=== PATIENT | female | born 1990 | race Caucasian/White ===

== ENCOUNTER 2016-07-16 04:51 | Emergency (ER) | payer BC ==
[~2016-07-16] VITALS: Ht 165.1 cm; Wt 88.6 kg
[~2016-07-16 04:51] MED LIST: BCP TD; DEPO-PROVER400 MG/ML IM; MOTRIN 600600 MG/TAB PO; NAPROSYN500 MG PO; PRENATAL1 TA7 PO; ULTRAM 50MG TAB50 MG
[2016-07-16 04:56] VITALS: BP 137/74; TEMP 97.8
[2016-07-16] MEDS ORDERED: AMOXICILLIN875 MG PO (05:17)
[2016-07-16 05:27] VITALS: PULSE 90
== END 2016-07-16 05:27 | disposition home or self-care (01) ==
LOC: COL.ER 04:51
DX: H66.92 Otitis media, unspecified, left ear (principal)

== ENCOUNTER 2016-10-15 18:08 | Emergency (ER) | payer BC ==
[~2016-10-15] VITALS: Ht 165.1 cm; Wt 88.6 kg
[~2016-10-15 18:08] MED LIST changes: +AMOXICILLIN875 MG PO
[2016-10-15 18:10] VITALS: BP 131/68; PULSE 85; TEMP 98
[2016-10-15] MEDS ORDERED: ZOLOFT 100MG100 MG PO (18:13)
== END 2016-10-15 18:58 | disposition home or self-care (01) ==
LOC: COL.ER 18:08
DX: S00.33XA Contusion of nose, initial encounter (principal); W50.0XXA Accidental hit or strike by another person, initial encounter

== ENCOUNTER 2018-01-22 15:50 | Emergency (ER) | payer BC ==
[~2018-01-22] VITALS: Ht 165.1 cm; Wt 95.5 kg
[~2018-01-22 15:50] MED LIST changes: +ZOLOFT 100MG100 MG PO
[2018-01-22 15:53] VITALS: BP 132/66; PULSE 78; TEMP 99.2
[2018-01-22] MEDS ORDERED: LEXAPRO20 MG PO (16:16)
[2018-01-22] MEDS ORDERED: SINGULAIR 110 MG/TAB PO (16:17)
[2018-01-22] MEDS ORDERED: ALLEGRA 60MG TA60 MG PO (16:17)
[2018-01-22] MEDS ORDERED: PROAIR HFA0.09 MG/AC IH (16:17)
[2018-01-22] MEDS ORDERED: ATIVAN 1MG T1 MG/TAB PO (16:17)
== END 2018-01-22 16:30 | disposition home or self-care (01) ==
LOC: COL.ER 15:50
DX: S90.32XA Contusion of left foot, initial encounter (principal); W20.8XXA Other cause of strike by thrown, projected or falling object, initial encounter; Y92.89 Other specified places as the place of occurrence of the external cause

== ENCOUNTER 2018-04-04 13:49 | Outpatient (RCR) | payer OTHER ==
[~2018-04-04 13:49] MED LIST changes: +ALLEGRA 60MG TA60 MG PO; +ATIVAN 1MG T1 MG/TAB PO; +LEXAPRO20 MG PO; +PROAIR HFA0.09 MG/AC IH; +SINGULAIR 110 MG/TAB PO
== END 2018-06-15 | disposition home or self-care (01) ==
LOC: WSOH
DX: S86.211A Strain of muscle(s) and tendon(s) of anterior muscle group at lower leg level, right leg, initial encounter (principal); W01.0XXA Fall on same level from slipping, tripping and stumbling without subsequent striking against object, initial encounter; Y93.G1 Activity, food preparation and clean up; Y92.214 College as the place of occurrence of the external cause; Y99.0 Civilian activity done for income or pay; Z79.899 Other long term (current) drug therapy

== ENCOUNTER → 2019-04-27 | Outpatient (CLI) | payer OTHER | LOC: COL.RAD 13:59 | DX: R60.0 Localized edema (principal) ==

== ENCOUNTER 2019-05-16 14:37 | Outpatient (RCR) | payer OTHER | END 2019-06-12 08:01 | disposition home or self-care (01) | LOC: WSOT 14:37 | DX: M79.644 Pain in right finger(s) (principal); Z96.651 Presence of right artificial knee joint ==

== ENCOUNTER 2020-04-21 10:37 | Inpatient (IN) | payer BC ==
[2020-04-21] VITALS (34 sets, daily range): BP systolic 102–136; BP diastolic 54–79; PULSE 75–112; TEMP 97.4–98.5
[~2020-04-21] VITALS: Ht 165.1 cm; Wt 102.3 kg
--- NOTE | 2020-04-21 10:55 | NUR ---
Patient ambulatory onto unit with at side for labor check. Patient reports contractions since 0745. Patient reports good movement, denies vaginal bleeding and leaking of fluid. EFMs on, VS taken. SVE -/-2. Will notify for further orders.
[2020-04-21] MEDS ORDERED: IRON 27 MG PO (11:03)
[2020-04-21] MEDS ORDERED: PRENATAL VITAMI1 TA3 PO (11:03)
[2020-04-21] MEDS ORDERED: DUO-KAPS1 CAP PO (11:03)
--- NOTE | 2020-04-21 12:05 | NUR ---
Report to Jose Martin WALLACE to assume care of patient at this time.
--- NOTE | 2020-04-21 12:05 | NUR ---
MERCEDES per Gurdeep Alanis RN /1. Patient off EFM per patient request for intermittent monitoring. See physician notification. Consents explained and signed. Patient updated on plan of care. 1235- Patient back to bed and sititing upright in bed per patient request.
[2020-04-21 12:59] LABS: BASO # 0.1 (0.0-0.2); BASO % 0.3 % (0.0-2.0); EOS # 0.1 (0.0-0.7); EOS % 0.4 % (0-4.0); GRAN # 15.8 (1.4-6.5); GRAN % 87.9 % (42.2-75.2); HEMATOCRIT 37.3 % (37.0-47.0); HEMOGLOBIN 12.7 g/dl (12.5-16.0); LYMPH # 1.2 (1.2-3.4); LYMPH % 6.6 % (20.0-51.0); MEAN CELL VOLUME 92 fl (80.0-100.0); MEAN CORPUSCULAR HEMOGLOBIN 31 pg (27.0-31.0); MEAN CORPUSCULAR HGB CONC 34 g/dl (33.0-37.0); MEAN PLATELET VOLUME 10.5 fl (7.4-10.4); MONO # 0.8 (0.1-0.6); MONO % 4.2 % (1.7-9.3); PLATELET COUNT 230 K/mm3 (130-400); RED BLOOD COUNT 4.04 M/mm3 (4.10-5.30); REDCELL DISTRIBUTION WIDTH-CV 13.8 % (11.5-14.5)
--- NOTE | 2020-04-21 14:45 | NUR ---
1445- Patient up to bathroom. 1450- Patient reports SROM for moderate amount of clear fluid while in bathroom. Assisted to back to bed, pericare given. SVE unchanged. Patient requesting epidural. Marco Ngo CRNA notified, LR bolus infusing. See physician notification. 1512- Marco Ngo CRNA at bedside for epidural. Patient assisted to sit on edge of bed, difficulty tracing FHR continuously due to maternal movement and position. RN remains at bedside attempting to adjust EFM. 1526- Single shot via epidural per Marco Ngo CRNA. Patient tolerates well. No adverse reactions noted, see anesthesia record. Patient repositioned WL. 1539- Test dose via epidural per Marco Ngo CRNA. patietn tolerates well, no adverse reactions noted. See anesthesia record. Patient updated on plan of care, reports comfort with epidural.
--- NOTE | 2020-04-21 17:10 | NUR ---
1710- Patient repositioned RL. Dr. Begum updated on patient assessment and FHR strip and interventions at 1713. 1715- Patient repositioned LL 1720- Pitocin discontinued, patient LL with RL in [facility].
--- NOTE | 2020-04-21 18:30 | NUR ---
Report received, care assumed. Patient c/o feeling pain and pressure with contractions. SVE - complete/+1. Patient positioned to high fowlers and encouraged to push epidural VALVER button for pain control. Dr. Begum on unit and updated on SVE.
--- NOTE | 2020-04-21 19:25 | NUR ---
1905 - Dr. Begum to room, patient prepped for delivery and begins to push with contractions. 1924 - Spontaneous vaginal delivery of viable male infant by Dr. Begum. Cord clamped and cut and infant to the care of the nursery RN. 1929 - Spontaneous delivery of placenta by Dr. Begum. Pitocin infusing at 333ml/hr per orders and protocol. Fundus firm, lochia WNL. Repair of 2nd degree laceration by Dr. Begum.
[2020-04-22 03:30] VITALS: BP 126/65; PULSE 82; TEMP 97.9
[2020-04-22 07:05] LABS: HEMOGLOBIN 11.6 g/dl (12.5-16.0)
[2020-04-22 07:11] LABS: HEMATOCRIT 33.9 % (37.0-47.0)
[2020-04-22] MEDS ORDERED: IBU600 MG PO (08:58)
--- NOTE | 2020-04-22 10:02 | NUR ---
Initial visit; Parents thanked Campus Coordinator for offering congratulations and God's blessings for the of their son. Campus Coordinator thanked family for choosing [facility].
[2020-04-22 15:41] VITALS: BP 1114/62; PULSE 76; TEMP 98.3
[2020-04-22 20:00] VITALS: BP 110/68; PULSE 78; TEMP 98.2
== END 2020-04-22 21:25 | disposition home or self-care (01) | DRG 807 ==
LOC: LDRO 10:37 → LDR 12:08 → OB 12:08
PROVIDERS: Obstetrics & Gynecology; ADMIT Obstetrics & Gynecology
PROC: 10E0XZZ Delivery of Products of Conception, External Approach (ICD-10-PCS; principal; 2020-04-21)
PROC: 0KQM0ZZ Repair Perineum Muscle, Open Approach (ICD-10-PCS; 2020-04-21)
DX: O99.214 Obesity complicating childbirth (principal); Z37.0 Single live birth; E66.9 Obesity, unspecified; O99.344 Other mental disorders complicating childbirth; F32.9 Major depressive disorder, single episode, unspecified; O70.1 Second degree perineal laceration during delivery; Z3A.39 39 weeks gestation of pregnancy; M19.90 Unspecified osteoarthritis, unspecified site
CPT/HCPCS: J2400; J2590; J2795; J7120

== ENCOUNTER → 2020-11-28 | Outpatient (CLI) | payer BC ==
[~2020-11-28] VITALS: Ht 165.1 cm; Wt 93.6 kg
[~2020-11-28] MED LIST changes: +DUO-KAPS1 CAP PO; +EFFEXOR 75M75 MG/TAB PO; +IBU600 MG PO; +IRON 27 MG PO; +NORCO 325 MG-51 TAB PO; +PRENATAL VITAMI1 TA3 PO
[2020-11-28 12:59] VITALS: BP 119/79; PULSE 81
[2020-11-28 14:45] VITALS: BP 133/86; PULSE 76
== END ==
LOC: COL.RAD 12:40
DX: M46.1 Sacroiliitis, not elsewhere classified (principal)
CPT/HCPCS: J3301

== ENCOUNTER → 2020-12-19 | Outpatient (CLI) | payer BC ==
[~2020-12-19] VITALS: Ht 165.1 cm; Wt 95.8 kg
[2020-12-19 06:58] VITALS: BP 126/77; PULSE 73
[2020-12-19 07:53] VITALS: BP 127/76; PULSE 73
--- NOTE | 2020-12-19 07:55 | NUR ---
RIGHT FOOT IS FINE NOW, NO NUMBNESS. SNACK GIVEN
== END ==
LOC: COL.RAD 06:30
DX: M54.41 Lumbago with sciatica, right side (principal)
CPT/HCPCS: J3301

== ENCOUNTER → 2021-06-20 | Outpatient (CLI) | payer BC | LOC: MHCPAIN 10:48 | DX: M51.16 Intervertebral disc disorders with radiculopathy, lumbar region (principal); M99.05 Segmental and somatic dysfunction of pelvic region ==

== ENCOUNTER → 2021-07-14 | Outpatient (CLI) | payer BC | LOC: MHCPAIN 09:48 | DX: M53.3 Sacrococcygeal disorders, not elsewhere classified (principal) | CPT/HCPCS: J1100; Q9967 ==

== ENCOUNTER → 2021-08-26 | Outpatient (CLI) | payer BC | LOC: MHCPAIN 11:32 | DX: M54.16 Radiculopathy, lumbar region (principal); M41.26 Other idiopathic scoliosis, lumbar region; M79.18 Myalgia, other site | CPT/HCPCS: G0463 ==

== ENCOUNTER → 2021-09-04 | Outpatient (CLI) | payer BC | LOC: MHCPAIN 08:43 | DX: M47.816 Spondylosis without myelopathy or radiculopathy, lumbar region (principal); M53.3 Sacrococcygeal disorders, not elsewhere classified; M54.16 Radiculopathy, lumbar region | CPT/HCPCS: J1100; Q9967 ==

== ENCOUNTER → 2021-11-11 | Outpatient (CLI) | payer BC | LOC: MHCPAIN 10:46 | DX: M54.16 Radiculopathy, lumbar region (principal); M79.2 Neuralgia and neuritis, unspecified; M53.3 Sacrococcygeal disorders, not elsewhere classified | CPT/HCPCS: G0463 ==

== ENCOUNTER → 2022-07-03 | Outpatient (CLI) | payer OTHER | LOC: MC.RAD 08:45 | DX: Z00.00 Encounter for general adult medical examination without abnormal findings (principal); R59.0 Localized enlarged lymph nodes ==

== ENCOUNTER 2022-08-02 06:45 | Emergency (ER) | payer OTHER ==
[~2022-08-02] VITALS: Ht 162.6 cm; Wt 109.1 kg
[2022-08-02 07:41] LABS: STREP SCREEN POSITIVE
[2022-08-02] MEDS ORDERED: CEPACOL SORE TH1 LO8 MM (07:52)
[2022-08-02 08:32] VITALS: BP 131/92; PULSE 97; TEMP 97.9
== END 2022-08-02 08:34 | disposition home or self-care (01) ==
LOC: COL.ER 06:45
PROVIDERS: Emergency Medicine
DX: J02.0 Streptococcal pharyngitis (principal); Z28.310 Unvaccinated for COVID-19
CPT/HCPCS: J0561; J1100

== ENCOUNTER → 2022-08-26 | Outpatient (CLI) | payer OTHER ==
[~2022-08-26] MED LIST changes: +CEPACOL SORE TH1 LO8 MM
== END ==
LOC: MHCPAIN 14:20
DX: M54.50 Low back pain, unspecified (principal); M51.36 Other intervertebral disc degeneration, lumbar region; M54.31 Sciatica, right side; M79.18 Myalgia, other site
CPT/HCPCS: G0463

== ENCOUNTER → 2022-09-23 | Outpatient (CLI) | payer OTHER | LOC: MHCPAIN 11:16 | DX: M79.18 Myalgia, other site (principal); M54.31 Sciatica, right side | CPT/HCPCS: J3301 ==

== ENCOUNTER 2023-06-04 09:45 | Outpatient (RCR) | payer OTHER | END 2023-06-06 | disposition home or self-care (01) | LOC: MKS.ESL.PT | DX: M51.36 Other intervertebral disc degeneration, lumbar region (principal) ==

== ENCOUNTER → 2023-06-04 | Outpatient (CLI) | payer OTHER | LOC: COL.RAD 08:07 | DX: M51.16 Intervertebral disc disorders with radiculopathy, lumbar region (principal); M47.26 Other spondylosis with radiculopathy, lumbar region; M48.061 Spinal stenosis, lumbar region without neurogenic claudication; N92.0 Excessive and frequent menstruation with regular cycle ==

== ENCOUNTER → 2023-06-22 | Outpatient (CLI) | payer OTHER | LOC: COL.LAB 13:10 | DX: M47.816 Spondylosis without myelopathy or radiculopathy, lumbar region (principal); M79.2 Neuralgia and neuritis, unspecified ==

== ENCOUNTER 2023-07-02 09:45 | Outpatient (RCR) | payer OTHER | END 2023-07-07 | disposition home or self-care (01) | LOC: MKS.ESL.PT | DX: M51.16 Intervertebral disc disorders with radiculopathy, lumbar region (principal) ==

== ENCOUNTER 2023-07-16 09:45 | Outpatient (RCR) | payer OTHER | END 2023-07-26 08:33 | disposition home or self-care (01) | LOC: MKS.ESL.PT 09:45 | DX: M51.16 Intervertebral disc disorders with radiculopathy, lumbar region (principal) ==

== ENCOUNTER → 2023-08-30 | Outpatient (CLI) | payer OTHER | LOC: MHCPAIN 10:17 | DX: M54.50 Low back pain, unspecified (principal); M47.816 Spondylosis without myelopathy or radiculopathy, lumbar region; M79.18 Myalgia, other site | CPT/HCPCS: G0463 ==

== ENCOUNTER → 2023-10-04 | Outpatient (CLI) | payer OTHER | LOC: MHCPAIN 11:02 | DX: M47.816 Spondylosis without myelopathy or radiculopathy, lumbar region (principal); M54.50 Low back pain, unspecified | CPT/HCPCS: J0665 ==

== ENCOUNTER 2024-03-31 16:20 | Emergency (ER) | payer OTHER ==
[~2024-03-31] VITALS: Ht 162.6 cm; Wt 105.0 kg
[2024-03-31 16:23] VITALS: TEMP 97.8
[2024-03-31 19:04] LABS: BASO # 0.1 K/mm3 (0.0-0.2); EOS # 0.2 K/mm3 (0.0-0.7); EOS % 1.9 % (0.0-4.0); GRAN # 5.5 K/mm3 (1.4-6.5); GRAN % 63.4 % (42.2-75.2); HEMOGLOBIN 12.8 g/dl (12.5-16.0); LYMPH # 2.4 K/mm3 (1.2-3.4); LYMPH % 28.3 % (20.0-51.0); MEAN CELL VOLUME 92 fl (80.0-100.0); MEAN CORPUSCULAR HEMOGLOBIN 32 pg (27-31); MEAN CORPUSCULAR HGB CONC 35 g/dl (33.0-37.0); MEAN PLATELET VOLUME 10.5 fl (7.4-10.4); MONO # 0.5 K/mm3 (0.1-0.6); MONO % 5.3 % (1.7-9.3); PLATELET COUNT 281 K/mm3 (130-400); RED BLOOD COUNT 3.99 M/mm3 (4.10-5.30); REDCELL DISTRIBUTION WIDTH-CV 12.4 % (11.5-14.5)
[2024-03-31 19:05] LABS: HEMATOCRIT 36.8 % (37.0-47.0)
[2024-03-31 19:22] LABS: ALBUMIN 4.2 g/dL (3.5-5.0); BILIRUBIN,TOTAL 0.4 mg/dL (0.2-1.2); CALCIUM 10.3 mg/dL (8.4-10.2); CREATININE, serum 0.78 mg/dL (0.57-1.11); TOTAL PROTEIN 7.4 g/dl (6.2-8.1)
[2024-03-31 19:30] LABS: POTASSIUM 3.7 mEq/L (3.5-4.5)
[2024-03-31] MEDS ORDERED: Ondansetron 4 MG/2 ML VIAL IV ONE (19:45)
[2024-03-31] MEDS ORDERED: Ketorolac 30 MG/ML VIAL IV ONE (19:45)
[2024-03-31] MEDS ORDERED: NS 1,000 ML IV ONE (19:45)
[2024-03-31] MEDS ORDERED: Iohexol 300 - 100 ML VIAL IV ONE (20:36)
[2024-03-31] MEDS ORDERED: NS 50 ML IV SCH (20:37)
[2024-03-31 20:49] LABS: COLLECTION METHOD CLEAN CATCH
[2024-03-31 20:56] LABS: URINE APPEARANCE CLEAR (CLEAR/HAZY); URINE BLOOD NEGATIVE (NEGATIVE); URINE COLOR YELLOW (YELLOW); URINE GLUCOSE NEGATIVE (NEGATIVE); URINE KETONE NEGATIVE (NEGATIVE); URINE NITRATE NEGATIVE (NEGATIVE); URINE PROTEIN(semi-quant) NEGATIVE (NEGATIVE); URINE UROBILINOGEN 0.2 E.U/dL (0.2-1.0)
[2024-03-31 21:47] VITALS: BP 134/79; PULSE 103
== END 2024-03-31 22:18 | disposition home or self-care (01) ==
LOC: COL.ER 16:20
PROVIDERS: Nurse Practitioner Primary Care
DX: R10.13 Epigastric pain (principal)
CPT/HCPCS: J1885; J2405; J7030; Q9967